=== PATIENT | female | born 1985 | race Caucasian/White ===

== ENCOUNTER 2016-08-14 12:44 | Emergency (ER) | payer BC ==
[2016-08-14] MEDS ORDERED: SODIUM CHLORIDE 0.9% 500 ML IV STA (12:55)
--- NOTE | 2016-08-14 13:03 | ED ---
Seizure HPI - General Stated Complaint: Seizure Time Seen by Provider: 08/14/16 12:55 Source: patient, RN notes reviewed Mode of arrival: ambulatory Limitations: no limitations - History of Present Illness Initial Comments: 30-year-old female presents emergency Department with chief complaint of headache seizure. Patient was here with family member sitting waiting room when she probably had a seizure. Patient was not responsive for a short bit but had normal vitals. Patient didn't awake and states that she has no blood pick seizures secondary to migraines that started 4 years ago. Patient is here from [place] to be seen at the [facility] for her headaches. She has been seen at multiple facilities including [facility] in [place]. Patient states that she feels like her normal self at this time. Denies any chest pain or shortness breath, nausea, vomiting. She does complain of headache which is chronic. - Related Data Home Medications Medication Instructions Recorded Confirmed FLUoxetine HCL 40 mg PO QAM 08/14/16 08/14/16 FLUoxetine HCL [PROzac] 20 mg PO QAM 08/14/16 08/14/16 Allergies Allergy/AdvReac Type Severity Reaction Status Date / Time dexamethasone Allergy Unknown Verified 08/14/16 13:38 diphenhydramine Allergy Unknown Verified 08/14/16 13:38 [From Benadryl] doxycycline Allergy Unknown Verified 08/14/16 13:38 hydrocortisone Allergy Unknown Verified 08/14/16 13:38 latex Allergy Unknown Verified 08/14/16 13:38 methylprednisolone Allergy Unknown Verified 08/14/16 13:38 [From Medrol] olanzapine [From Zyprexa] Allergy Unknown Verified 08/14/16 13:38 Penicillins Allergy Unknown Verified 08/14/16 13:38 prednisone Allergy Unknown Verified 08/14/16 13:38 venom-honey bee Allergy Unknown Verified 08/14/16 13:38 venom-wasp Allergy Unknown Verified 08/14/16 13:38 Review of Systems ROS Statement: Those systems with pertinent positive or pertinent negative responses have been documented in the HPI. ROS Other: All systems not noted in ROS Statement are negative. General Exam General appearance: alert, in no apparent distress Head exam: Present: atraumatic, normocephalic, normal inspection Neck exam: Present: normal inspection. Absent: tenderness, meningismus, lymphadenopathy Respiratory exam: Present: normal lung sounds bilaterally. Absent: respiratory distress, wheezes, rales, rhonchi, stridor Cardiovascular Exam: Present: regular rate, normal rhythm, normal heart sounds. Absent: systolic murmur, diastolic murmur, rubs, gallop, clicks Neurological exam: Present: alert, oriented X3, CN II-XII intact, reflexes normal. Absent: motor sensory deficit Skin exam: Present: warm, dry, intact, normal color. Absent: rash Course Vital Signs 08/14/16 12:59 Temperature 98.3 F Pulse Rate 82 Respiratory 16 Rate Blood Pressure 120/72 O2 Sat by Pulse 100 Oximetry Medical Decision Making - Medical Decision Making 30-year-old female presented emergency department for headache or seizure. Patient has a known history of this. Patient has seen multiple specialists in the past. This is not atypical for her to present like this. Patient's laboratory within normal limits. EKG with a normal it's. Patient be discharged. Return parameters were discussed. - Lab Data Result diagrams: 08/14/16 12:58 08/14/16 12:58 Lab Results 08/14/16 08/14/16 Range/Units 12:58 12:58 WBC 6.2 (3.8-10.6) k/uL RBC 4.58 (3.80-5.40) m/uL Hgb 13.6 (11.4-16.0) gm/dL Hct 41.1 (34.0-46.0) % MCV 89.7 (80.0-100.0) fL MCH 29.7 (25.0-35.0) pg MCHC 33.1 (31.0-37.0) g/dL RDW 14.1 (11.5-15.5) % Plt Count 351 (150-450) k/uL Neutrophils % 69 % Lymphocytes % 22 % Monocytes % 6 % Eosinophils % 1 % Basophils % 0 % Neutrophils # 4.3 (1.3-7.7) k/uL Lymphocytes # 1.4 (1.0-4.8) k/uL Monocytes # 0.4 (0-1.0) k/uL Eosinophils # 0.1 (0-0.7) k/uL Basophils # 0.0 (0-0.2) k/uL Sodium 143 (137-145) mmol/L Potassium 3.9 (3.5-5.1) mmol/L Chloride 107 (98-107) mmol/L Carbon Dioxide 24 (22-30) mmol/L Anion Gap 12 mmol/L BUN 11 (7-17) mg/dL Creatinine 0.90 (0.52-1.04) mg/dL Est GFR (MDRD) Af Amer >60 (>60 ml/min/1.73 sqM) Est GFR (MDRD) Non-Af >60 (>60 ml/min/1.73 sqM) Glucose 107 H (74-99) mg/dL Calcium 9.3 (8.4-10.2) mg/dL Total Bilirubin 0.5 (0.2-1.3) mg/dL AST 14 (14-36) U/L ALT 28 (9-52) U/L Alkaline Phosphatase 69 (38-126) U/L Total Protein 7.6 (6.3-8.2) g/dL Albumin 4.2 (3.5-5.0) g/dL 08/14/16 13:42 EKG performed at 12:50 normal sinus rhythm with a rate of 74 UT interval 120 QRS duration 92 QTC is QTC 392/435 Disposition Clinical Impression: Headache, History of seizure Disposition: HOME SELF-CARE Condition: Stable Instructions: Recurrent Seizures in Adults (ED) Additional Instructions: Please return to the Emergency Department if symptoms worsen or any other concerns. Referrals: Nonstaff,Physician [Primary Care Provider] - 1-2 days Time of Disposition: 13:43
[2016-08-14 13:13] VITALS: RESP 16
[2016-08-14 13:18] LABS: Basophils % (A) 0 %; CH 29.7; CHCM 33.3; Eosinophils # (A) 0.1 k/uL (0-0.7); Eosinophils % (A) 1 %; HCT 41.1 % (34.0-46.0); HGB 13.6 gm/dL (11.4-16.0); Luc # (Auto) 0.11; Luc % (Auto) 2; Lymphocytes # (A) 1.4 k/uL (1.0-4.8); Lymphocytes % (A) 22 %; MCH 29.7 pg (25.0-35.0); MCHC 33.1 g/dL (31.0-37.0); MCV 89.7 fL (80.0-100.0); Mean Platelet Volume 6.3; Monocytes # (A) 0.4 k/uL (0-1.0); Monocytes % (A) 6 %; Neutrophils # (A) 4.3 k/uL (1.3-7.7); Neutrophils % (A) 69 %; RBC 4.58 m/uL (3.80-5.40); RDW 14.1 % (11.5-15.5); WBC 6.2 k/uL (3.8-10.6); WBC (Perox) 6.25
[2016-08-14 13:29] LABS: ALT 28 U/L (9-52); AST 14 U/L (14-36); Alkaline Phosphatase 69 U/L (38-126); Anion Gap 12 mmol/L; Blood Urea Nitrogen 11 mg/dL (7-17); Calcium 9.3 mg/dL (8.4-10.2); Carbon Dioxide 24 mmol/L (22-30); Chloride 107 mmol/L (98-107); Glucose 107 mg/dL (74-99); Non-African American GFR(MDRD) >60 (>60 ml/min/1.73 sqM); Potassium 3.9 mmol/L (3.5-5.1); Sodium 143 mmol/L (137-145); Total Bilirubin 0.5 mg/dL (0.2-1.3); Total Protein 7.6 g/dL (6.3-8.2)
[2016-08-14] MEDS ORDERED: ONDANSETRON 4 MG/2 ML VIAL IVP STA (13:46)
[2016-08-14] MEDS ORDERED: HYDROmorphone 1 MG/ML 1 ML SYRINGE IVP STA (13:46)
[2016-08-14 14:24] VITALS: BP 108/74; PULSE 76; TEMP 97.3
== END 2016-08-14 14:29 | disposition home or self-care (01) ==
LOC: EC 12:44
DX: R51 Headache (principal); R56.9 Unspecified convulsions; Z79.899 Other long term (current) drug therapy; Z91.040 Latex allergy status; Z91.030 Bee allergy status; Z88.0 Allergy status to penicillin; Z88.8 Allergy status to other drugs, medicaments and biological substances; Z88.1 Allergy status to other antibiotic agents
CPT/HCPCS: 36415; 93005; 80053; 85025; 99284; 96374; 96361; J1170

== ENCOUNTER 2022-04-03 14:58 | Inpatient (IN) | payer BC, OTHER ==
[2022-04-03] MEDS ORDERED: PHENYTOIN SODIUM INJ 1,000 MG in SODIUM CHLORIDE 0.9% 100 ML IVPB STA (15:04)
--- NOTE | 2022-04-03 15:07 | ED ---
General Adult HPI - General Chief complaint: Altered Mental Status Stated complaint: Seizure Time Seen by Provider: 04/03/22 15:03 Source: EMS, RN notes reviewed Mode of arrival: EMS Limitations: altered mental status - History of Present Illness Initial comments: Patient is a postictal 36-year-old female presenting to the emergency department following reported seizure. Incident occurred prior to arrival. EMS states seizure lasted 9-50 minutes prior to their arrival and up to 10 more minutes following that. Patient did receive percent 5 mg IM 2. Patient then had an EJ placed with IV milligrams Versed IV with resolution of seizure. Patient is postictal and unable to provide information at this time. Patient does have history of seizure. Medication list shows that patient is currently on Lamictal. Patient cannot receive Keppra secondary to ALLERGY - Related Data Home Medications Medication Instructions Recorded Confirmed FLUoxetine HCL 40 mg PO QAM 08/14/16 04/03/22 FLUoxetine HCL [PROzac] 20 mg PO QAM 08/14/16 04/03/22 Albuterol Sulfate [Albuterol 2 puff PO RT-Q6H PRN 04/03/22 04/03/22 Sulfate Hfa] EPINEPHrine (Auto Inject) [Epipen] 0.3 mg IM ONCE PRN 04/03/22 04/03/22 Methadone HCl [Methadone Intensol] 85 mg PO DAILY 04/03/22 04/03/22 Ondansetron Odt [Zofran Odt] 8 mg PO Q8HR PRN 04/03/22 04/03/22 QUEtiapine [SEROquel] 100 mg PO HS PRN 04/03/22 04/03/22 lamoTRIgine [LaMICtal] 100 mg PO BID 04/03/22 04/03/22 Allergies Allergy/AdvReac Type Severity Reaction Status Date / Time adhesive Allergy Rash/Hives Verified 04/03/22 17:51 amoxicillin Allergy Anaphylaxis Verified 04/03/22 17:51 ceftriaxone [From Rocephin] Allergy Anaphylaxis Verified 04/03/22 17:51 Corticosteroids Allergy See comment Verified 04/03/22 17:51 (Glucocorticoids) dexamethasone Allergy Hives/SOB Verified 04/03/22 17:51 diphenhydramine Allergy see comment Verified 04/03/22 17:51 [From Benadryl] doxycycline Allergy Anaphylaxis Verified 04/03/22 17:51 haloperidol [From Haldol] Allergy Rash/Hives/ Verified 04/03/22 17:51 SOB hydrocortisone Allergy Unknown Verified 04/03/22 17:51 latex Allergy Rash/Hives Verified 04/03/22 17:51 levetiracetam [From Keppra] Allergy See comment Verified 04/03/22 17:51 methylprednisolone Allergy Unknown Verified 04/03/22 17:51 [From Medrol] metoclopramide [From Reglan] Allergy Rash/Hives/ Verified 04/03/22 17:51 SOB/Palpita tions olanzapine [From Zyprexa] Allergy Unknown Verified 04/03/22 15:07 Penicillins Allergy Anaphylaxis Verified 04/03/22 17:51 prednisone Allergy Hives/Swell Verified 04/03/22 17:51 ing/SOB/Vom iting prochlorperazine Allergy see comment Verified 04/03/22 17:51 [From Compazine] venom-honey bee Allergy Anaphylaxis Verified 04/03/22 17:51 venom-wasp Allergy Anaphylaxis Verified 04/03/22 17:51 phenytoin [From Dilantin] AdvReac Severe See comment Verified 04/03/22 18:05 buprenorphine AdvReac see comment Verified 04/03/22 17:51 ergotamine AdvReac Seizures Verified 04/03/22 17:51 naloxone [From Narcan] AdvReac see comment Verified 04/03/22 17:51 Review of Systems ROS Statement: Those systems with pertinent positive or pertinent negative responses have been documented in the HPI. ROS Other: All systems not noted in ROS Statement are negative. Limitations: ROS unobtainable due to patients medical condition Past Medical History Past Medical History: No Reported History, Seizure Disorder Past Surgical History: Appendectomy Additional Past Surgical History / Comment(s): cardiac abla Past Psychological History: Unable to Obtain Past Alcohol Use History: Unable to Obtain Past Drug Use History: Unable to Obtain General Exam Limitations: altered mental status General appearance: lethargic Head exam: Present: other (Mild soft tissue swelling left posterior parietal. Forehead and temporal abrasions) Eye exam: Present: normal appearance, PERRL ENT exam: Present: normal oropharynx Neck exam: Present: normal inspection. Absent: tenderness Respiratory exam: Present: normal lung sounds bilaterally Cardiovascular Exam: Present: regular rate, normal rhythm GI/Abdominal exam: Present: soft. Absent: tenderness Extremities exam: Present: normal inspection, full ROM Neurological exam: Present: altered (Postictal) Psychiatric exam: Present: other (Nonverbal at this time) Skin exam: Present: normal color, abrasion Course Vital Signs 04/03/22 04/03/22 04/03/22 15:12 15:17 15:34 Pulse Rate 75 77 70 Respiratory 12 16 15 Rate Blood Pressure 95/63 105/70 O2 Sat by Pulse 100 100 Oximetry 04/03/22 04/03/22 16:54 17:41 Pulse Rate 66 85 Respiratory 16 16 Rate Blood Pressure 98/65 121/90 O2 Sat by Pulse 100 96 Oximetry EKG Findings - EKG Results: EKG: interpreted by ERMD, sinus rhythm, normal axis, normal QRS, normal ST/T Medical Decision Making - Medical Decision Making Patient did have a witnessed seizure by nursing staff lasting 4-6 minutes receiving 2 doses of Ativan. Patient reevaluated several times. Several conversations with patient and family. Family does not want patient to have Dilantin secondary to similarities to Narcan and concern for patient having withdrawal. In addition there was a possibility of patient having previous adverse reaction with it. Was pt. sent in by a medical professional or institution (, PA, NURSING TECHN, urgent care, hospital, or longterm...) When possible be specific @ -[No] Did you speak to anyone other than the patient for history (EMS, parent, family, police, friend...)? What history was obtained from this source @ -Family provides additional history including patient's seizure history Did you review nursing and triage notes (agree or disagree)? Why? @ -[I reviewed and agree with nursing and triage notes] Were old charts reviewed (outside hosp., previous admission, EMS record, old EKG, old radiological studies, urgent care reports/EKG's, longterm records)? Report findings @ -No prior charts available Differential Diagnosis (chest pain, altered mental status, abdominal pain women, abdominal pain men, vaginal bleeding, weakness, fever, dyspnea, syncope, headache, dizziness, GI bleed, back pain, seizure, CVA, palpatations, mental health)? @ -Differential Seizure: Recurrent seizure disorder, febrile seizure, alcohol withdrawal, stimulants, meningitis, encephalitis, intercranial hemorrhage, intracranial tumor, stroke, eclampsia, thyrotoxicosis, hypocalcemia, hyponatremia, hypernatremia, hypomagnesemia, psychogenic, this is not meant to be an all-inclusive list. EKG interpreted by me (3pts min.). @ -[As above] X-rays interpreted by me (1pt min.). @ -As above CT interpreted by me (1pt min.). @ -Report reviewed U/S interpreted by me (1pt. min.). @ -[None done] What testing was considered but not performed or refused? (CT, X-rays, U/S, labs)? Why? @ -[None] What meds were considered but not given or refused? Why? @ -Dilantin considered but refused by family Did you discuss the management of the patient with other professionals (professionals i.e. , PA, NURSING TECHN, lab, RT, psych nurse, outreach and education social worker, membership correspondent, teacher, correctional probation officer, director of casework)? Give summary @ -Case was discussed with Dr. Beyer, covering for hospital call, who will admit. Neurology will be placed on consult Was smoking cessation discussed for >3mins.? @ -[No] Was critical care preformed (if so, how long)? @ -Yes, 33 minutes Were there social determinants of health that impacted care today? How? (Homelessness, low income, unemployed, alcoholism, drug addiction, transportation, low edu. Level, literacy, decrease access to med. care, skilled nursing, rehab)? @ -Patient is out of town with increased stress and history of seizure versus pseudoseizure Was there de-escalation of care discussed even if they declined (Discuss DNR or withdrawal of care, Hospice)? DNR status @ -[No] What co-morbidities impacted this encounter? (DM, HTN, Smoking, COPD, CAD, Cancer, CVA, ARF, Chemo, Hep., AIDS, mental health diagnosis, sleep apnea, morbid obesity)? @ -[None] Was patient admitted / discharged? Hospital course, mention meds given and route, prescriptions, significant lab abnormalities, going to OR and other pertinent info. @ -Admitted Undiagnosed new problem with uncertain prognosis? @ -[No] Drug Therapy requiring intensive monitoring for toxicity (Heparin, Nitro, Insulin, Cardizem)? @ -[No] Were any procedures done? @ -[No] Diagnosis/symptom? @ -For status epilepticus Acute, or Chronic, or Acute on Chronic? @ -Acute Uncomplicated (without systemic symptoms) or Complicated (systemic symptoms)? @ -Uncomplicated Side effects of treatment? @ Exacerbation, Progression, or Severe Exacerbation? @ -Severe exacerbation of chronic seizure disorder Poses a threat to life or bodily function? How? (Chest pain, USA, AR, pneumonia, PE, COPD, DKA, ARF, appy, cholecystitis, CVA, Diverticulitis, Homicidal, Suicidal, threat to staff... and all critical care pts) @ -Poses a threat to life and brain - Lab Data Result diagrams: 04/03/22 15:16 04/03/22 15:16 Lab Results 04/03/22 04/03/22 04/03/22 Range/Units 15:16 15:16 15:52 WBC 3.7 L (3.8-10.6) k/uL RBC 3.83 (3.80-5.40) m/uL Hgb 11.2 L (11.4-16.0) gm/dL Hct 33.4 L (34.0-46.0) % MCV 87.3 (80.0-100.0) fL MCH 29.3 (25.0-35.0) pg MCHC 33.6 (31.0-37.0) g/dL RDW 13.8 (11.5-15.5) % Plt Count 200 (150-450) k/uL MPV 9.8 Neutrophils % 60 % Lymphocytes % 29 % Monocytes % 7 % Eosinophils % 1 % Basophils % 1 % Neutrophils # 2.2 (1.3-7.7) k/uL Lymphocytes # 1.1 (1.0-4.8) k/uL Monocytes # 0.2 (0-1.0) k/uL Eosinophils # 0.1 (0-0.7) k/uL Basophils # 0.0 (0-0.2) k/uL Sodium 137 (137-145) mmol/L Potassium 3.8 (3.5-5.1) mmol/L Chloride 105 (98-107) mmol/L Carbon Dioxide 19 L (22-30) mmol/L Anion Gap 13 mmol/L BUN 13 (7-17) mg/dL Creatinine 1.06 H (0.52-1.04) mg/dL Est GFR (CKD-EPI)AfAm 78 (>60 ml/min/1.73 sqM) Est GFR (CKD-EPI)NonAf 67 (>60 ml/min/1.73 sqM) Glucose 106 H (74-99) mg/dL Calcium 8.5 (8.4-10.2) mg/dL Magnesium 1.8 (1.6-2.3) mg/dL Total Bilirubin 0.3 (0.2-1.3) mg/dL AST 72 H (14-36) U/L ALT 123 H (4-34) U/L Alkaline Phosphatase 77 (38-126) U/L Total Protein 7.1 (6.3-8.2) g/dL Albumin 4.2 (3.5-5.0) g/dL Urine Color Yellow Urine Appearance Clear (Clear) Urine pH 6.5 (5.0-8.0) Ur Specific [place] 1.023 (1.001-1.035) Urine Protein Trace H (Negative) Urine Glucose (UA) Negative (Negative) Urine Ketones Negative (Negative) Urine Blood Negative (Negative) Urine Nitrite Negative (Negative) Urine Bilirubin Negative (Negative) Urine Urobilinogen 2.0 (<2.0) mg/dL Ur Leukocyte Esterase Moderate H (Negative) Urine RBC 5 (0-5) /hpf Urine WBC 4 (0-5) /hpf Ur Squamous Epith Cells 1 (0-4) /hpf Urine Bacteria Rare H (None) /hpf Hyaline Casts 3 H (0-2) /lpf Urine Mucus Few H (None) /hpf Urine HCG, Qual (Not Detectd) Urine Opiates Screen Not Detected (NotDetected) Ur Oxycodone Screen Not Detected (NotDetected) Urine Methadone Screen Detected H (NotDetected) Ur Propoxyphene Screen Not Detected (NotDetected) Ur Barbiturates Screen Not Detected (NotDetected) U Tricyclic Antidepress Detected H (NotDetected) Ur Phencyclidine Scrn Not Detected (NotDetected) Ur Amphetamines Screen Not Detected (NotDetected) U Methamphetamines Scrn Not Detected (NotDetected) U Benzodiazepines Scrn Detected H (NotDetected) Urine Cocaine Screen Not Detected (NotDetected) U Marijuana (THC) Screen Detected H (NotDetected) Serum Alcohol <10 mg/dL 04/03/22 Range/Units 15:52 WBC (3.8-10.6) k/uL RBC (3.80-5.40) m/uL Hgb (11.4-16.0) gm/dL Hct (34.0-46.0) % MCV (80.0-100.0) fL MCH (25.0-35.0) pg MCHC (31.0-37.0) g/dL RDW (11.5-15.5) % Plt Count (150-450) k/uL MPV Neutrophils % % Lymphocytes % % Monocytes % % Eosinophils % % Basophils % % Neutrophils # (1.3-7.7) k/uL Lymphocytes # (1.0-4.8) k/uL Monocytes # (0-1.0) k/uL Eosinophils # (0-0.7) k/uL Basophils # (0-0.2) k/uL Sodium (137-145) mmol/L Potassium (3.5-5.1) mmol/L Chloride (98-107) mmol/L Carbon Dioxide (22-30) mmol/L Anion Gap mmol/L BUN (7-17) mg/dL Creatinine (0.52-1.04) mg/dL Est GFR (CKD-EPI)AfAm (>60 ml/min/1.73 sqM) Est GFR (CKD-EPI)NonAf (>60 ml/min/1.73 sqM) Glucose (74-99) mg/dL Calcium (8.4-10.2) mg/dL Magnesium (1.6-2.3) mg/dL Total Bilirubin (0.2-1.3) mg/dL AST (14-36) U/L ALT (4-34) U/L Alkaline Phosphatase (38-126) U/L Total Protein (6.3-8.2) g/dL Albumin (3.5-5.0) g/dL Urine Color Urine Appearance (Clear) Urine pH (5.0-8.0) Ur Specific [place] (1.001-1.035) Urine Protein (Negative) Urine Glucose (UA) (Negative) Urine Ketones (Negative) Urine Blood (Negative) Urine Nitrite (Negative) Urine Bilirubin (Negative) Urine Urobilinogen (<2.0) mg/dL Ur Leukocyte Esterase (Negative) Urine RBC (0-5) /hpf Urine WBC (0-5) /hpf Ur Squamous Epith Cells (0-4) /hpf Urine Bacteria (None) /hpf Hyaline Casts (0-2) /lpf Urine Mucus (None) /hpf Urine HCG, Qual Not Detected (Not Detectd) Urine Opiates Screen (NotDetected) Ur Oxycodone Screen (NotDetected) Urine Methadone Screen (NotDetected) Ur Propoxyphene Screen (NotDetected) Ur Barbiturates Screen (NotDetected) U Tricyclic Antidepress (NotDetected) Ur Phencyclidine Scrn (NotDetected) Ur Amphetamines Screen (NotDetected) U Methamphetamines Scrn (NotDetected) U Benzodiazepines Scrn (NotDetected) Urine Cocaine Screen (NotDetected) U Marijuana (THC) Screen (NotDetected) Serum Alcohol mg/dL - Radiology Data Radiology results: report reviewed (Computed tomography scan of brain and cervical spine reveal no acute process) Critical Care Time Critical Care Time: Yes Total Critical Care Time: 33 Disposition Clinical Impression: Status epilepticus Disposition: ADMITTED IP TO THIS [facility] Instructions (If sedation given, give patient instructions): Seizure/Epilepsy Discharge Instructions & Follow-Up Is patient prescribed a controlled substance at d/c from ED?: No Referrals: Nonstaff,Physician [Primary Care Provider] - 1-2 days Time of Disposition: 19:37
[2022-04-03 16:00] LABS: Basophils % (A) 1 %; Eosinophils # (A) 0.1 k/uL (0-0.7); Eosinophils % (A) 1 %; HCT 33.4 % (34.0-46.0); HGB 11.2 gm/dL (11.4-16.0); Lymphocytes # (A) 1.1 k/uL (1.0-4.8); Lymphocytes % (A) 29 %; MCH 29.3 pg (25.0-35.0); MCHC 33.6 g/dL (31.0-37.0); MCV 87.3 fL (80.0-100.0); Mean Platelet Volume 9.8; Monocytes # (A) 0.2 k/uL (0-1.0); Monocytes % (A) 7 %; Neutrophils # (A) 2.2 k/uL (1.3-7.7); Neutrophils % (A) 60 %; Platelet Count 200 k/uL (150-450); RBC 3.83 m/uL (3.80-5.40); RDW 13.8 % (11.5-15.5); WBC 3.7 k/uL (3.8-10.6)
[2022-04-03 16:01] LABS: ALT 123 U/L (4-34); AST 72 U/L (14-36); African American GFR (CKD) 78 (>60 ml/min/1.73 sqM); Albumin 4.2 g/dL (3.5-5.0); Alcohol <10 mg/dL; Alkaline Phosphatase 77 U/L (38-126); Anion Gap 13 mmol/L; Blood Urea Nitrogen 13 mg/dL (7-17); Calcium 8.5 mg/dL (8.4-10.2); Carbon Dioxide 19 mmol/L (22-30); Chloride 105 mmol/L (98-107); Glucose 106 mg/dL (74-99); Magnesium 1.8 mg/dL (1.6-2.3); Non-African American GFR(CKD) 67 (>60 ml/min/1.73 sqM); Potassium 3.8 mmol/L (3.5-5.1); Sodium 137 mmol/L (137-145); Total Bilirubin 0.3 mg/dL (0.2-1.3); Total Protein 7.1 g/dL (6.3-8.2)
--- NOTE | 2022-04-03 16:17 | CT ---
EXAMINATION TYPE: CT brain cspine wo con DATE OF EXAM: 04/03/2022 COMPARISON: None HISTORY: Seizure with head injury. Hx seizures CT DLP: 1545 mGycm, Automated exposure control for dose reduction was used. CONTRAST: None CT of the brain is performed utilizing 3 mm thick sections through the posterior fossa and 3 mm thick sections through the remaining calvarium. Study is performed within 24 hours of arrival to the hospital. No abnormal hyperdensity is present to suggest an acute intracranial hemorrhage. No mass lesion is evident. No acute infarcts are evident. Ventricles and sulci are appropriate for the patient age. Paranasal sinuses and mastoid air cells within the [id number] are clear. IMPRESSIONS: 1. No acute intracranial process. Follow-up can be performed with MRI as clinically indicated. CT cervical spine. COMPARISON: None CT of the cervical spine is performed in the axial plane at 2 mm thick sections. Reconstructed image s in the coronal, and sagittal plane are reviewed on the computer. No acute fractures are evident. Vertebral body alignment is normal. Disc heights are preserved. Vertebral body heights are preserved. No spinal canal stenosis is evident. No neural foraminal stenosis is evident. IMPRESSIONS: 1. No acute osseous abnormality cervical spine
[2022-04-03 16:28] LABS: Appearance,Urine Clear (Clear); Bacteria,Urine Rare /hpf; Bilirubin,Urine Negative (Negative); Blood,Urine Negative (Negative); Color,Urine Yellow; Glucose,Urine (UA) Negative (Negative); Hyaline Casts,Urine 3 /lpf (0-2); Ketones,Urine Negative (Negative); Leukocyte Esterase,Urine Moderate (Negative); Mucus,Urine Few /hpf; Nitrite,Urine Negative (Negative); PH, Urine 6.5 (5.0-8.0); Protein,Urine Trace (Negative); RBC,Urine 5 /hpf (0-5); Specific Gravity,Urine 1.023 (1.001-1.035); Squamous Epithelial Cell,Urine 1 /hpf (0-4); WBC,Urine 4 /hpf (0-5)
[2022-04-03 16:30] LABS: Cocaine Screen,Urine Not Detected (NotDetected); Opiate Screen,Urine Not Detected (NotDetected); Phencyclidine Screen,Urine Not Detected (NotDetected); Urn Cannabinoid Scrn Detected (NotDetected)
[2022-04-03 16:31] LABS: Amphetamine Screen,Urine Not Detected (NotDetected); Barbiturate Screen,Urine Not Detected (NotDetected); Benzodiazepines Screen,Urine Detected (NotDetected); Methadone Screen, Urine Detected (NotDetected); Oxycodone Screen, Urine Not Detected (NotDetected); Tricyclic Antidepressant,Urine Detected (NotDetected)
[2022-04-03] MEDS ORDERED: LORazepam 2 MG/ML INJ IV STA ×2 (17:31→17:36)
[2022-04-03] MEDS ORDERED: NALOXONE 0.4 MG/ML 1 ML VIAL IV PRN (19:37)
[2022-04-03] MEDS ORDERED: ACETAMINOPHEN TAB 325 MG TAB PO PRN (19:37)
[2022-04-03] MEDS ORDERED: QUEtiapine 100 MG TAB PO PRN (19:40)
[2022-04-03] MEDS ORDERED: SODIUM CHLORIDE 0.9% 1,000 ML IV SCH (19:45)
[2022-04-03] MEDS ORDERED: VALPROATE SODIUM 1,000 MG in SODIUM CHLORIDE 0.9% 100 ML IVPB ONE (20:15)
[2022-04-03] MEDS ORDERED: lamoTRIgine 25 MG TAB PO SCH (21:00)
[2022-04-03] MEDS: lamoTRIgine 25 MG TAB PO SCH ×2 (22:27→23:12)
[2022-04-03] MEDS: lamoTRIgine 100 MG TAB PO SCH ×2 (22:27→23:12)
[2022-04-03] MEDS: LORazepam 2 MG/ML INJ IV PRN (23:53)
[2022-04-04] MEDS: LORazepam 2 MG/ML INJ IV PRN (02:42)
--- NOTE | 2022-04-04 06:33 | P.HPIM ---
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 patient mother at bedside provides majority of the history. 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 she provides a sheet of paper with instructions regarding what works for her seizures. patient was in the bathroom today , when she was found to have a seizure episode , patient mother indicates that typically these seizure episodes lasts for long time. patient mother has the habit of timing those seizures when she witnesses one, and she said this time lasted more than 20 minutes , and another 10 minutes after EMS arrived. the seizures only resolves after versed. patient mother noted that the patient had injured her forehead assuming she fell when she had the seizure. this has been going on for years now and she follows up with neurology and therapy back home in [place]. patient claims she has official diagnosis of both seizures and pseudoseizures. she also recognizes that pseudoseizures could have emotional component to it. I started discussing the list of medications and med allergies list. when patie nt started becoming upset when I suggested she visits an sales account specialist to confirm those allergies. that when the patient started manifesting a seizure like activity , she was talking to me and then closes her eyes and makes a fist, then opens eyes and starts talking to me , and on goes into those cycles. mother recognized this as a seizure episode that was precipitated by stressful conversation with the teletypewriter installer of this note. patient vital signs on the monitor remains stable , patient mother was timing this event and has registered 8 minutes for this episode that was aborted after I asked the RN Darling to give the patient 2 mg of Ativan IVP to abort the seizure. patient regained consci ousness and started talking to me again. as I was asking more questions about the seizures and past treatments. patient closed her eyes again and turned her head to the side and stopped talking. patient mother again started her timer, and recognized this as another seizure episode, this time blaming the medication Ativan as ineffective and patient prefers versed. I asked the RN to bring 5 mg of versed and started discussing with the mother if this ever happened before and if the patient has ever been intubated due to uncontrolled seizures. patient mother indicated that these episodes are normal and usually she wakes up fine after 5-8 minutes , and that when a seizure episode would last longer than 10 minutes is when she gets worried and brings her to the doctors. at this time patient is having a seizure like activity, with one hand forming a tight fist and the other is relaxed, with her head turned to one side and eyes closed tight. no frothing from the mouth no tongue biting, no shaking , no loss of bladder or bowel control. as I was leaving the room to talk to the ED doc , RN stopped me and told me that the patient is doing this frequently whenever someone new comes to the room. and that she did not push Ativan but pushed saline earlier and aborted the seizure. I asked her to bring saline and versed as standby , and to test that again as the patient is clearly having a ps eudoseizure with seizure like activity that the mother is so used to , she does not seem to be very concerned or alarmed. as the RN was pushing the saline , we announced that we are pushing the desired 5 mg of versed , and within few seconds of pushing the saline and flushing it with saline, the seizure was aborted. and the patient regained consciousness and when I asked her how she felt , she said awesome. I later took the mom to the hallway, and explained to her what happened there earlier. I also suggested to the mother to get a psych evaluation in addition to neurology evaluation. patient mother requested to defer the psych evaluation until they go back home, as she is hoping that the patient gets cleared by neurology for travel tomorrow back to [place]. the whole family dynamic is not clear to me, I asked if she feels confident traveling back home with her daughters condition. she reassured me that her daughter will feel better when she knows that she is going back home and that she is usually stressed when traveling away from home and thats what brings on those seizure episodes. I discussed the case with the ED doc, who informed me that the patient refused keppra , refused dilantin , but finally was ok with adding another 50 mg of lamictal to her regimen patient denies any fever, chills, nausea or vomiting, denies any chest pain trouble breathing , changes in urinary or bowel habits ROS Pertinent positives as noted in HPI. All other systems were reviewed and are negative O/E Constitutional: No acute distress, cooperative Eyes: Anicteric sclerae, moist conjunctiva, Pupils equal round reactive to light ENMT: NC/ there is superficial abrasion over the left eyebrow, no bleeding no open wounds Oropharynx clear, no erythema, or exudates Neck: Supple, no masses, or JVD No carotid bruits No thyromegaly Lungs: Clear to auscultation Clear to percussion Normal respiratory effort, no accessory muscle use Cardiovascular: Heart regular in rate and rhythm, No murmurs, gallops, or rubs No peripheral edema Abdominal: Soft Nontender, no guarding, rebound or rigidity Abdomen moving with respiration Normoactive bowel sounds No hepatomegaly, No splenomegaly No palpable mass No abdominal wall hernia noted Skin: Normal temperature, tone, texture, turgor No induration No subcutaneous nodules No rash, lesions No ulcers Extremities: No digital cyanosis No clubbing Pedal pulses intact and symmetrical Radial pulses intact and symmetrical No calf tenderness Psychiatric: Alert and oriented to person, place and time Appropriate affect fair judgement Neuro Muscles Strength 5/5 in all 4 extremities Sensation to light touch grossly present throughout Cranial nerves II-XII grossly intact No focal sensory deficits Lymphatics: no palpable cervical or supraclavicular lymph nodes assessment 36 year old female from out of town, with history of seizure and pseudoseizures. presented with a prolonged seizure episode by EMS. patient then had multiple other episodes of seizure like activity in the ED lasting about 5-8 minutes each witnessed by patient RN. I discussed the case with ED doc, who reported that patient refused any adjustment made to her medications. and only approved addition of 50 mg of lamictal. most of the history obtained from the mother at bedside due to patient feeling stressed out when asked questions about her health which would precipitate a seizure like activity episode. admitted under observation with anticipated length of stay <2 mignights for neurology evaluation pseudoseizures, vs seizure seizure precautions neurology consultation resume lamictal 100 mg BID added 50 mg BID of lamictal per neurology recommendations CT of the brain and c spine , no acute pathology blood work reviewed , WBC 3.7 unremarkable , Hgb mild anemia 11.2 , creatinine slightly elevated at 1.06 , slightly elevated liver enzymes AST/ALT , alcohol level <10 , urine drug screen positive for methadone , benzo, TCA and marijuana full code DVT PPX mechanical Past Medical History Past Medical History: No Reported History, Seizure Disorder Past Surgical History: Appendectomy Additional Past Surgical History / Comment(s): cardiac abla Past Psychological History: Unable to Obtain Past Alcohol Use History: Unable to Obtain Past Drug Use History: Unable to Obtain - Past Family History family Additional Family Medical History / Comment(s): adopted Medications and Allergies Home Medications Medication Instructions Recorded Confirmed Type FLUoxetine HCL 40 mg PO QAM 08/14/16 04/03/22 History FLUoxetine HCL [PROzac] 20 mg PO QAM 08/14/16 04/03/22 History Albuterol Sulfate [Albuterol 2 puff PO RT-Q6H PRN 04/03/22 04/03/22 History Sulfate Hfa] EPINEPHrine (Auto Inject) [Epipen] 0.3 mg IM ONCE PRN 04/03/22 04/03/22 History Methadone HCl [Methadone Intensol] 85 mg PO DAILY 04/03/22 04/03/22 History Ondansetron Odt [Zofran ODT] 8 mg PO Q8HR PRN 04/03/22 04/03/22 History QUEtiapine [SEROquel] 100 mg PO HS PRN 04/03/22 04/03/22 History lamoTRIgine [LaMICtal] 100 mg PO BID 04/03/22 04/03/22 History lamoTRIgine [LaMICtal] 50 mg PO BID #120 tab 04/04/22 Rx Allergies Allergy/AdvReac Type Severity Reaction Status Date / Time adhesive Allergy Rash/Hives Verified 04/03/22 17:51 amoxicillin Allergy Anaphylaxis Verified 04/03/22 17:51 ceftriaxone [From Rocephin] Allergy Anaphylaxis Verified 04/03/22 17:51 Corticosteroids Allergy See comment Verified 04/03/22 17:51 (Glucocorticoids) dexamethasone Allergy Hives/SOB Verified 04/03/22 17:51 diphenhydramine Allergy see comment Verified 04/03/22 17:51 [From Benadryl] doxycycline Allergy Anaphylaxis Verified 04/03/22 17:51 haloperidol [From Haldol] Allergy Rash/Hives/ Verified 04/03/22 17:51 SOB hydrocortisone Allergy Unknown Verified 04/03/22 17:51 latex Allergy Rash/Hives Verified 04/03/22 17:51 levetiracetam [From Keppra] Allergy See comment Verified 04/03/22 17:51 methylprednisolone Allergy Unknown Verified 04/03/22 17:51 [From Medrol] metoclopramide [From Reglan] Allergy Rash/Hives/ Verified 04/03/22 17:51 SOB/Palpita tions olanzapine [From Zyprexa] Allergy Unknown Verified 04/03/22 15:07 Penicillins Allergy Anaphylaxis Verified 04/03/22 17:51 prednisone Allergy Hives/Swell Verified 04/03/22 17:51 ing/SOB/Vom iting prochlorperazine Allergy see comment Verified 04/03/22 17:51 [From Compazine] venom-honey bee Allergy Anaphylaxis Verified 04/03/22 17:51 venom-wasp Allergy Anaphylaxis Verified 04/03/22 17:51 phenytoin [From Dilantin] AdvReac Severe See comment Verified 04/03/22 18:05 buprenorphine AdvReac see comment Verified 04/03/22 17:51 ergotamine AdvReac Seizures Verified 04/03/22 17:51 naloxone [From Narcan] AdvReac see comment Verified 04/03/22 17:51 Physical Exam Vitals: Vital Signs Pulse Resp BP Pulse Ox 04/03/22 17:41 85 16 121/90 96 04/03/22 16:54 66 16 98/65 100 04/03/22 15:34 70 15 105/70 100 04/03/22 15:17 77 16 95/63 100 04/03/22 15:12 75 12 Intake and Output 04/03/22 04/03/22 04/03/22 06:59 14:59 22:59 Other: Weight 81.647 kg Results CBC & Chem 7: 04/04/22 07:59 04/04/22 07:59 Labs: Abnormal Lab Results - Last 24 Hours (Table) 04/03/22 04/03/22 04/03/22 Range/Units 15:16 15:16 15:52 WBC 3.7 L (3.8-10.6) k/uL Hgb 11.2 L (11.4-16.0) gm/dL Hct 33.4 L (34.0-46.0) % Carbon Dioxide 19 L (22-30) mmol/L Creatinine 1.06 H (0.52-1.04) mg/dL Glucose 106 H (74-99) mg/dL AST 72 H (14-36) U/L ALT 123 H (4-34) U/L Urine Protein Trace H (Negative) Ur Leukocyte Esterase Moderate H (Negative) Urine Bacteria Rare H (None) /hpf Hyaline Casts 3 H (0-2) /lpf Urine Mucus Few H (None) /hpf Urine Methadone Screen Detected H (NotDetected) U Tricyclic Antidepress Detected H (NotDetected) U Benzodiazepines Scrn Detected H (NotDetected) U Marijuana (THC) Screen Detected H (NotDetected)
[2022-04-04 06:50] VITALS: PULSE 76
[2022-04-04 08:35] LABS: Basophils % (A) 1 %; Eosinophils # (A) 0.1 k/uL (0-0.7); Eosinophils % (A) 3 %; HCT 31.8 % (34.0-46.0); HGB 10.6 gm/dL (11.4-16.0); Hypochromasia Slight; Lymphocytes # (A) 1.1 k/uL (1.0-4.8); Lymphocytes % (A) 31 %; MCH 29.9 pg (25.0-35.0); MCHC 33.3 g/dL (31.0-37.0); MCV 89.7 fL (80.0-100.0); Mean Platelet Volume 7.7; Monocytes # (A) 0.2 k/uL (0-1.0); Monocytes % (A) 4 %; Neutrophils # (A) 2.1 k/uL (1.3-7.7); Neutrophils % (A) 59 %; Platelet Count 198 k/uL (150-450); RBC 3.55 m/uL (3.80-5.40); RDW 13.5 % (11.5-15.5); WBC 3.5 k/uL (3.8-10.6)
[2022-04-04 08:57] LABS: ALT 115 U/L (4-34); AST 98 U/L (14-36); African American GFR (CKD) >90 (>60 ml/min/1.73 sqM); Albumin 3.5 g/dL (3.5-5.0); Alkaline Phosphatase 76 U/L (38-126); Anion Gap 5 mmol/L; Blood Urea Nitrogen 10 mg/dL (7-17); Calcium 8.1 mg/dL (8.4-10.2); Carbon Dioxide 22 mmol/L (22-30); Chloride 111 mmol/L (98-107); Glucose 77 mg/dL (74-99); Non-African American GFR(CKD) 82 (>60 ml/min/1.73 sqM); Sodium 138 mmol/L (137-145); Total Bilirubin 0.6 mg/dL (0.2-1.3); Total Protein 6.2 g/dL (6.3-8.2)
[2022-04-04] MEDS ORDERED: FLUoxetine HCL 20 MG CAP PO SCH (09:00)
[2022-04-04] MEDS: lamoTRIgine 100 MG TAB PO SCH (09:29)
[2022-04-04] MEDS: lamoTRIgine 25 MG TAB PO SCH (09:29)
[2022-04-04] MEDS ORDERED: FLUoxetine HCL 20 MG CAP PO STA (10:12)
--- NOTE | 2022-04-04 10:26 | P.CNNES ---
History of Present Illness Consult date: 04/04/22 Requesting physician: Dusty Moore Reason for Consult: status epilepticus History of Present Illness: This is a 36-year-old woman with history of seizure (epileptic and nonepileptic), depression, PTSD who presented emergency department because of seizures. Some of the history is obtained from patient's mother and medical record. It seems that the patient's mother found her in the bathroom having a seizure and it appears that the episode was prolonged and lasted more than 20 minutes and it seems that the patient had another episode lasting 10 minutes after EMS arrived. It seems that the patient had had trauma to the head over the left side Patient was given Versed seen by EMS and that resolved episode. Then she had multiple seizure-like activity in our facility and initially in the ED she was given 4 mg of Ativan. Then had multiple seizure-like activity overnight and was seen by the primary team and the primary team evaluate these episodes and they felt there pseudoseizures and also he gave the patient saline and it aborted the episodes. Seems in the emergency department she received Dilantin thousand milligrams. Also received Depakote loading dose of 1000 mg yesterday for concern of status. She is on Lamictal 100 mg one tablet twice a day and she has many side effects to difference medication/antiepileptic drugs. Seems that the patient is in [place] because of family . Patient is from [place] and had an extensive workup for his seizure. She had an epilepsy monitoring units and the she had MRI the brain in the past. According to the patient is having more pseudoseizure than actual epileptic in nature. She did follow up with a neurologist in the past but in the process of seeing and at different neurologist since he does not work as an outpatient. He does follow up with a psychiatrist. Patient stated that she could not tolerate Keppra, Dilantin, Depakote and many other medications. Cord to the mother they're trying to wean her off the medication. Patient is adopted and is not know about her biological family history. Some other workup during his hospital visit consisted of: Initial white blood cells 3.7 thousand I reviewed the rest of the CBC and differential The sodium, calcium and magnesium are within normal limits. Initial serum glucose is 106 The AST is 72 ALT is 123 Urine drug chain is positive for methadone, Tri-Cyclen, benzos, marijuana. Serum alcohol was less than 10 CT of the head is reported as no acute intracranial processes. Follow-up can be performed with MRI as quickly indicated. I personally reviewed with the CT of the head reported as in that there is no acute the intracranial stroke subacute stroke or mass. As no bleed. CT cervical spine is reported as no acute osseous abnormalities cervical spine. Review of Systems Review of system: The 12 point system was reviewed and apparent positive and negative per HPI. Past Medical History Past Medical History: No Reported History, Seizure Disorder Past Surgical History: Appendectomy Additional Past Surgical History / Comment(s): cardiac abla Past Psychological History: Unable to Obtain Past Alcohol Use History: Unable to Obtain Past Drug Use History: Unable to Obtain - Past Family History family Additional Family Medical History / Comment(s): adopted Medications and Allergies Home Medications Medication Instructions Recorded Confirmed Type FLUoxetine HCL 40 mg PO QAM 08/14/16 04/03/22 History FLUoxetine HCL [PROzac] 20 mg PO QAM 08/14/16 04/03/22 History Albuterol Sulfate [Albuterol 2 puff PO RT-Q6H PRN 04/03/22 04/03/22 History Sulfate Hfa] EPINEPHrine (Auto Inject) [Epipen] 0.3 mg IM ONCE PRN 04/03/22 04/03/22 History Methadone HCl [Methadone Intensol] 85 mg PO DAILY 04/03/22 04/03/22 History Ondansetron Odt [Zofran ODT] 8 mg PO Q8HR PRN 04/03/22 04/03/22 History QUEtiapine [SEROquel] 100 mg PO HS PRN 04/03/22 04/03/22 History lamoTRIgine [LaMICtal] 100 mg PO BID 04/03/22 04/03/22 History lamoTRIgine [LaMICtal] 50 mg PO BID #120 tab 04/04/22 Rx Allergies Allergy/AdvReac Type Severity Reaction Status Date / Time adhesive Allergy Rash/Hives Verified 04/03/22 17:51 amoxicillin Allergy Anaphylaxis Verified 04/03/22 17:51 ceftriaxone [From Rocephin] Allergy Anaphylaxis Verified 04/03/22 17:51 Corticosteroids Allergy See comment Verified 04/03/22 17:51 (Glucocorticoids) dexamethasone Allergy Hives/SOB Verified 04/03/22 17:51 diphenhydramine Allergy see comment Verified 04/03/22 17:51 [From Benadryl] doxycycline Allergy Anaphylaxis Verified 04/03/22 17:51 haloperidol [From Haldol] Allergy Rash/Hives/ Verified 04/03/22 17:51 SOB hydrocortisone Allergy Unknown Verified 04/03/22 17:51 latex Allergy Rash/Hives Verified 04/03/22 17:51 levetiracetam [From Keppra] Allergy See comment Verified 04/03/22 17:51 methylprednisolone Allergy Unknown Verified 04/03/22 17:51 [From Medrol] metoclopramide [From Reglan] Allergy Rash/Hives/ Verified 04/03/22 17:51 SOB/Palpita tions olanzapine [From Zyprexa] Allergy Unknown Verified 04/03/22 15:07 Penicillins Allergy Anaphylaxis Verified 04/03/22 17:51 prednisone Allergy Hives/Swell Verified 04/03/22 17:51 ing/SOB/Vom iting prochlorperazine Allergy see comment Verified 04/03/22 17:51 [From Compazine] venom-honey bee Allergy Anaphylaxis Verified 04/03/22 17:51 venom-wasp Allergy Anaphylaxis Verified 04/03/22 17:51 phenytoin [From Dilantin] AdvReac Severe See comment Verified 04/03/22 18:05 buprenorphine AdvReac see comment Verified 04/03/22 17:51 ergotamine AdvReac Seizures Verified 04/03/22 17:51 naloxone [From Narcan] AdvReac see comment Verified 04/03/22 17:51 Physical Examination - Vital Signs Vital Signs: Vital Signs Pulse Resp BP Pulse Ox 04/04/22 06:48 76 12 114/70 99 04/04/22 02:43 68 14 117/83 99 04/04/22 01:36 70 14 97 04/03/22 22:30 65 10 L 115/83 98 04/03/22 17:41 85 16 121/90 96 04/03/22 16:54 66 16 98/65 100 04/03/22 15:34 70 15 105/70 100 04/03/22 15:17 77 16 95/63 100 04/03/22 15:12 75 12 GENERAL: The patient is lying in bed and is not in acute distress. HENT: Bruise over the left frontal (from fall) CHEST: The heart rate is regular rate rhythm. No murmurs to auscultation. LUNG: Clear to auscultation bilaterally no wheezing noted throughout. Not labored breathing. ABDOMEN/GI: Bowel sounds present in all 4 quadrants. No tenderness to palpation throughout. NEUROLOGICAL: Higher mental function: The patient is awake, alert, oriented to self, place and time. Patient is following commands. No aphasia and no neglect. Cranial nerves: The pupils are round, equal and reactive to light and accommodation. Visual marquez are full to confrontation throughout. Extraocular movement is intact no nystagmus is noted. Facial sensation is normal to touch throughout. The facial strength is normal throughout. Hearing is normal bilaterally to hand rub. Tongue is midline and moved [id number] without any difficulty. No dysarthria is noted. No tongue bite. Shoulder shrug is normal bilaterally. Motor: The strength is 5 over 5 throughout. Normal tone and bulk. Cerebellum: Normal finger to nose heel to chin bilaterally. Sensation: Sensation is normal to touch throughout. Reflexes (right/left): 2+ throughout. Plantars are mute bilaterally. Results - Laboratory Findings CBC and BMP: 04/04/22 07:59 04/04/22 07:59 Abnormal Lab Findings: Abnormal Labs 04/03/22 04/03/22 04/03/22 15:16 15:16 15:52 WBC 3.7 L RBC Hgb 11.2 L Hct 33.4 L Chloride Carbon Dioxide 19 L Creatinine 1.06 H Glucose 106 H Calcium AST 72 H ALT 123 H Total Protein Urine Protein Trace H Ur Leukocyte Esterase Moderate H Urine Bacteria Rare H Hyaline Casts 3 H Urine Mucus Few H Urine Methadone Screen Detected H U Tricyclic Antidepress Detected H U Benzodiazepines Scrn Detected H U Marijuana (THC) Screen Detected H 04/04/22 04/04/22 07:59 07:59 WBC 3.5 L RBC 3.55 L Hgb 10.6 L Hct 31.8 L Chloride 111 H Carbon Dioxide Creatinine Glucose Calcium 8.1 L AST 98 H ALT 115 H Total Protein 6.2 L Urine Protein Ur Leukocyte Esterase Urine Bacteria Hyaline Casts Urine Mucus Urine Methadone Screen U Tricyclic Antidepress U Benzodiazepines Scrn U Marijuana (THC) Screen Assessment and Plan Assessment: Breakthrough seizure (appears more pseudoseizures) History of seizures (has epileptic and non-epileptic). Had extensive testing Depression PTSD Plan: I witnessed an episode early in the morning and patient had head turning to right then left without any foaming and had some extensor posturing of lowers and episode seemed more pseudoseizure. Episode was lasting for at least 2-3 minutes and not resolving. Since this was an emergent situation, I gave the pat ient saline since I felt it was more pseudoseizure over Ativan or Versed and the episode aborted immediately. Prior to giving saline the mother was at bedside and asked if this is a is saline or medication and I stated it was medication. I did not reveal it was saline since was concerned about patient knowing that is saline then that would affect the outcome and would lead to unnecessary medica tions (sedations such as Ativan or Versed) that has side-effects. After given the medication I notified the mother and patient that I gave her saline since wanted to see the affect of the saline and did not want to give Ativan or Versed and cause more harm which can cause respiratory depression that would lead to intubation if not needed. I increase Lamictal from 100 to 150 mg 1 tablet twice a day since I cannot exclude true epileptic in nature. By her episode seems more nonepileptic. Placed on seizure precaution and pads. Patient and mother want to hold off on EEG. I recommend to avoid giving benzo/sedative as well as saline when she has she episodes since it seems more pseudoseizures. Mother and patient would like to follow-up with psychiatry as an outpatient I highly recommend the patient follow up with a neurologist as an outpatient for continuity of care within 1-2 weeks. The plan is discussed with patient, mother who is at bedside and primary team. There is no further neurological workup. Thank you for the consultation. Time with Patient: Greater than 30
[2022-04-04 12:15] VITALS: BP 132/92; RESP 20; TEMP 98.2
--- NOTE | 2022-04-04 12:21 | P.DS ---
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 Patient is here visiting from [place] for . Patient's mother is at bedside. Patient was in the bathroom yesterday, when she was found to have a seizure episode. Patient's mother indicates that typically these seizure episodes lasts for long time. Patient mother has the habit of timing those seizures when she witnesses one, and she said this time lasted more than 20 minutes, and another 10 minutes after EMS arrived. The seizures only resolves after versed. patient mother noted that the patient had injured her forehead assuming she fell when she had the seizure. this has been going on for years now and she follows up with neurology and therapy back home in [place]. Patient claims she has official diagnosis of both seizures and pseudoseizures. she also recognizes that pseudoseizures could have emotional component to it. Patient was seen by neurology and was likely having pseudoseizures. There is some incidents whereby patient's pseudoseizures improved with saline. Lamictal was increased. Patient was deemed necessary for discharge today. Patient refused to have me examine her today stating she doesn't trust anyone in the hospital and wanted to be transferred. She declined getting an EEG and declined further treatment. Since patient was deemed appropriate for discharge, she will be discharged today. Please refer to nursing documentation and neurology documentation regarding events prior to her discharge. CT of the brain no acute intracranial pathology Drug screen was positive for methadone tricyclic antidepressants benzodiazepines and marijuana. Patient advised to follow-up with her PCP in 2-5 days Follow-up with neurologist in 1 week Disposition: Home Activity: As tolerated Diet: Regular Condition: Stable Patient Condition at Discharge: Stable Plan - Discharge Summary Discharge Rx Participant: Yes New Discharge Prescriptions: New lamoTRIgine [LaMICtal] 50 mg PO BID #120 tab Continue FLUoxetine HCL [PROzac] 20 mg PO QAM FLUoxetine HCL 40 mg PO QAM lamoTRIgine [LaMICtal] 100 mg PO BID QUEtiapine [SEROquel] 100 mg PO HS PRN PRN Reason: Insomnia Ondansetron Odt [Zofran ODT] 8 mg PO Q8HR PRN PRN Reason: Nausea EPINEPHrine (Auto Inject) [Epipen] 0.3 mg IM ONCE PRN PRN Reason: Anaphylaxis Albuterol Sulfate [Albuterol Sulfate Hfa] 2 puff PO RT-Q6H PRN PRN Reason: Shortness Of Breath Or Wheezing Methadone HCl [Methadone Intensol] 85 mg PO DAILY Discharge Medication List FLUoxetine HCL 40 mg PO QAM 08/14/16 [History] FLUoxetine HCL [PROzac] 20 mg PO QAM 08/14/16 [History] Albuterol Sulfate [Albuterol Sulfate Hfa] 2 puff PO RT-Q6H PRN 04/03/22 [History] EPINEPHrine (Auto Inject) [Epipen] 0.3 mg IM ONCE PRN 04/03/22 [History] Methadone HCl [Methadone Intensol] 85 mg PO DAILY 04/03/22 [History] Ondansetron Odt [Zofran ODT] 8 mg PO Q8HR PRN 04/03/22 [History] QUEtiapine [SEROquel] 100 mg PO HS PRN 04/03/22 [History] lamoTRIgine [LaMICtal] 100 mg PO BID 04/03/22 [History] lamoTRIgine [LaMICtal] 50 mg PO BID #120 tab 04/04/22 [Rx] Follow up Appointment(s)/Referral(s): Nonstaff,Physician [Primary Care Provider] - 1-2 days Patient Instructions/Handouts: Seizure/Epilepsy Discharge Instructions & Follow-Up Discharge Disposition: HOME SELF-CARE
== END 2022-04-04 12:10 | disposition home or self-care (01) | DRG 101 ==
LOC: EC 14:58 → 1SOBS 19:37 → 3SCARD 04-04 00:18
PROVIDERS: ADMIT Student in an Organized Health Care Education/Training Program; ATTEND Student in an Organized Health Care Education/Training Program
DX: R56.9 Unspecified convulsions (principal); D64.9 Anemia, unspecified; F32.A Depression, unspecified; F43.10 Post-traumatic stress disorder, unspecified; Z66 Do not resuscitate; Z79.899 Other long term (current) drug therapy; Z88.1 Allergy status to other antibiotic agents; Z91.041 Radiographic dye allergy status; Z88.8 Allergy status to other drugs, medicaments and biological substances; Z88.5 Allergy status to narcotic agent; Z88.6 Allergy status to analgesic agent; Z91.040 Latex allergy status
CPT/HCPCS: 36415; 70450; 72125; 80053; 80175; 80306; 80320; 81001; 81025; 83735; 85025; 96374; 96376; 99291